=== PATIENT | male | born 1960 | race Two or more races ===

== ENCOUNTER 2016-05-14 08:09 | Emergency (ER) | payer OTHER ==
[2016-05-14 08:16] VITALS: RESP 16
--- NOTE | 2016-05-14 08:27 | CPEKG ---
Heart Rate: 78 RR Interval: 769 P-R Interval: 148 QRSD Interval: 80 QT Interval: 372 QTC Interval: 424 P [place]: 63 QRS [place]: 61 T Wave [place]: 24 EKG Severity - NORMAL ECG - EKG Impression: SINUS RHYTHM Electronically Signed By: Kayley East 14-May-2016 10:15:31
--- NOTE | 2016-05-14 08:49 | EDPHY ---
H & P Time Seen by Provider: 05/14/16 08:41 HPI/ROS: CHIEF COMPLAINT: Fatigue, chest pains HISTORY OF PRESENT ILLNESS: This patient is a diabetic 56 year old male who was brought into to the Emergency Department by his typists supervisor for worsening fatigue over the past 2-3 months. His typists supervisor reports that he had difficulty waking the patient up today and tells me that he seemed disoriented and "incoherent" when he awoke. Upon arrival, the patient tells me that he is "simply exhausted." He also complains of episodic throbbing right-sided chest pain lasting for less than one minute each time. He is unsure how long this has been occurring. His pain is not exacerbated with deep breathing or exertion. He denies dyspnea or cough. He reports 2-3 episodes of left upper quadrant abdominal pains lasting for 2-3 minutes each time, worse in the morning. His final complaint is of intermittent bilateral foot and leg numbness that subsides on its own. He does not have a primary care provider and has not been evaluated for these complaints. REVIEW OF SYSTEMS: Constitutional: +fatigue, no fever, no chills Eyes: No visual changes ENT: No sore throat Respiratory: No cough, no shortness of breath Cardiac: +chest pain Gastrointestinal: +abdominal pain, no nausea, no vomiting Genitourinary: No hematuria, no dysuria Musculoskeletal: No leg pain or swelling Skin: No rash Neurological: +intermittent bilateral lower leg numbness, no headache, no weakness Psychiatric: No depression Past Medical/Surgical History: Diabetes. Hepatitis C. 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 Lives in [place]. Smokes occasionally. Smoking Status: Current some day smoker Physical Exam: General Appearance: Alert, no distress Eyes: Pupils equal and round, no conjunctival pallor or injection ENT, Mouth: Mucous membranes moist Neck: Normal inspection Respiratory: Lungs are clear to auscultation Cardiovascular: Regular rate and rhythm Gastrointestinal: Abdomen is soft and non-tender Neurological: A&O, nonfocal, normal gait Skin: Warm and dry, no rash Extremities: Nontender, no pedal edema Psychiatric: Mood and affect normal Constitutional: Initial Vital Signs Temperature (C) 36.6 C 05/14/16 08:12 Heart Rate 80 05/14/16 08:12 Respiratory Rate 16 05/14/16 08:12 Blood Pressure 119/69 05/14/16 08:12 O2 Sat (%) 96 05/14/16 08:12 O2 Delivery Mode Room Air Allergies/Adverse Reactions: No Known Allergies Allergy (Unverified 05/14/16 08:12) Home Medications: Medication Instructions Recorded NK [No Known Home Meds] 05/14/16 Medical Decision Making - Diagnostics EKG Interpretation: The 12 lead EKG was interpreted by myself: Sinus rhythm, rate 78; no ST/T changes. Interpretation: Normal EKG. Imaging: Imaging Impressions Chest X-Ray 05/14/16 08:55 Impression: Peribronchial thickening, without a focal infiltrate. ED Course/Re-evaluation: This 56 year old male presents with worsening chronic fatigue and multiple symptomatic complaints of episodic left-sided chest pains and intermittent abdominal pain and bilateral lower leg weakness. Chest pain is atypical and I do not suspect ACS in this pt. stat EKG without ischemia or dysrhythmia. He is not diabetic but is concerned that his symptoms are secondary to diabetes. His exam is benign. Vitals are stable. Will proceed with labs, UA, chest x-ray, and EKG. CBC and chemistries obtained and are unremarkable. BGL is 95. No evidence of diabetes. Differential Diagnosis: includes though not limited to DM, ACS, pneumonia, PTX, kidney stone - Data Points Laboratory Results: Laboratory Results 05/14/16 08:33 05/14/16 08:33 05/14/16 05/14/16 08:33 08:33 WBC 7.50 10^3/uL 10^3/uL (3.80-9.50) RBC 5.24 10^6/uL 10^6/uL (4.40-6.38) Hgb 18.1 g/dL H g/dL (13.7-17.5) Hct 51.7 % H % (40.0-51.0) MCV 98.7 fL fL (81.5-99.8) MCH 34.5 pg H pg (27.9-34.1) MCHC 35.0 g/dL g/dL (32.4-36.7) RDW 13.5 % % (11.5-15.2) Plt Count 211 10^3/uL 10^3/uL (150-400) MPV 10.4 fL fL (8.7-11.7) Neut % (Auto) 60.4 % % (39.3-74.2) Lymph % (Auto) 25.2 % % (15.0-45.0) Cuming % (Auto) 11.1 % % (4.5-13.0) Eos % (Auto) 2.1 % % (0.6-7.6) Baso % (Auto) 0.8 % % (0.3-1.7) Nucleat RBC Rel Count 0.0 % % (0.0-0.2) Absolute Neuts (auto) 4.53 10^3/uL 10^3/uL (1.70-6.50) Absolute Lymphs (auto) 1.89 10^3/uL 10^3/uL (1.00-3.00) Absolute Monos (auto) 0.83 10^3/uL H 10^3/uL (0.30-0.80) Absolute Eos (auto) 0.16 10^3/uL 10^3/uL (0.03-0.40) Absolute Basos (auto) 0.06 10^3/uL 10^3/uL (0.02-0.10) Absolute Nucleated RBC 0.00 10^3/uL 10^3/uL (0-0.01) Immature Gran % 0.4 % % (0.0-1.1) Immature Gran # 0.03 10^3/uL 10^3/uL (0.00-0.10) Sodium 138 mEq/L mEq/L (134-144) Potassium 4.0 mEq/L mEq/L (3.5-5.2) Chloride 103 mEq/L mEq/L (97-110) Carbon Dioxide 22 mEq/l mEq/l (22-31) Anion Gap 13 mEq/L mEq/L (8-16) BUN 24 mg/dL H mg/dL (7-23) Creatinine 0.7 mg/dL mg/dL (0.7-1.3) Estimated GFR > 60 Glucose 95 mg/dL mg/dL (70-100) Calcium 9.9 mg/dL mg/dL (8.5-10.4) Medications Given: Discontinued Medications Acetaminophen (Tylenol) 650 mg PO EDNOW ONE Stop: 05/14/16 10:01 Last Admin: 05/14/16 10:00 Dose: 650 mg Departure - Departure Disposition: Home, Routine, Self-Care Clinical Impression: Atypical chest pain, Bilateral leg numbness Fatigue Qualifiers: Fatigue type: chronic, unspecified Qualified Code(s): R53.82 - Chronic fatigue , unspecified Condition: Good Instructions: Chest Pain (ED), Fatigue (ED) Additional Instructions: 1. Take 650mg Tylenol every 4-6 hours as needed for pain. 2. Call to schedule a follow-up appointment at [facility] to further evaluate your ongoing concerns of leg numbness and abdominal pain. 3. Return to the Emergency Department if you experience worsening chest pain, shortness of breath, confusion, or for other serious concerns. Referrals: [facility],. [Clinic] - As per Instructions Report Scribed for: Kayley East Report Scribed by: Gianna Olivier Date of Report: 05/14/16 Time of Report: 08:43 Physician Review and Approval Statement: 05/14/16 08:43 Portions of this note were transcribed by a medical billing manager. I personally performed a history, physical exam, medical decision making, and confirmed accuracy of information the transcribed note.
[2016-05-14 09:00] LABS: % IMMATURE GRANULYOCYTES 0.4 % (0.0-1.1); ABSOLUTE IMMATURE GRANULOCYTES 0.03 10^3/uL (0.00-0.10); ADD DIFF? NO; ADD MORPH? NO; ADD SCAN? NO; ATYPICAL LYMPHOCYTE FLAG 10 (0-99); FRAGMENT RBC FLAG 0 (0-99); HEMATOCRIT 51.7 % (40.0-51.0); HEMOGLOBIN 18.1 g/dL (13.7-17.5); LEFT SHIFT FLG 0 (0-99); LIPEMIA HEMOLYSIS FLAG 90 (0-99); MEAN CELL HEMOGLOBIN 34.5 pg (27.9-34.1); MEAN CELL VOLUME 98.7 fL (81.5-99.8); MEAN PLATELET VOLUME 10.4 fL (8.7-11.7); PLATELET CLUMPS FLAG 0 (0-99); PLATELET COUNT 211 10^3/uL (150-400); RED BLOOD CELL COUNT 5.24 10^6/uL (4.40-6.38); RED CELL DISTRIBUTION WIDTH 13.5 % (11.5-15.2)
[2016-05-14 09:06] LABS: ANION GAP 13 mEq/L (8-16); CALCIUM 9.9 mg/dL (8.5-10.4); CARBON DIOXIDE 22 mEq/l (22-31); CHLORIDE 103 mEq/L (97-110); CREATININE 0.7 mg/dL (0.7-1.3); GLOMERULAR FILTRATION RATE > 60; GLUCOSE 95 mg/dL (70-100); SODIUM 138 mEq/L (134-144)
[2016-05-14] MEDS ORDERED: ACETAMINOPHEN 325 MG TAB PO ONE (10:00)
[2016-05-14] MEDS ORDERED: ACETAMINOPHEN 325 MG TAB ONE (10:04)
[2016-05-14 10:22] VITALS: BP 124/74; PULSE 84; TEMP 98.4; O2SAT 94
== END 2016-05-14 10:21 | disposition home or self-care (01) ==
DX: R07.89 Other chest pain (principal); R20.0 Anesthesia of skin; R53.82 Chronic fatigue, unspecified; E11.9 Type 2 diabetes mellitus without complications; F17.200 Nicotine dependence, unspecified, uncomplicated